=== PATIENT | female | born 1970 | race Hispanic/Latino ===

== ENCOUNTER 2018-11-01 11:59 | Day surgery (SDC) | payer BC ==
[2018-11-01] MEDS ORDERED: Ringers Lactate 1,000 ML IV ONE (12:18)
[2018-11-01] MEDS: CEFAZOLIN/SWI 2gm 2 GM/20 ML SYR ONE ×2 (13:25→13:42)
[2018-11-01] MEDS ORDERED: FENTANYL CITR 100 MCG/2 ML ONE (14:18)
[2018-11-01] MEDS ORDERED: PROPOFOL 200 MG/20 ML VIAL IV ONE (14:18)
[2018-11-01] MEDS ORDERED: LIDOCAINE 2% MPF 5 ML VIAL ONE (14:18)
[2018-11-01] MEDS ORDERED: MIDAZOLAM HCL 2 MG/2 ML INJ ONE (14:18)
[2018-11-01] MEDS ORDERED: dexAMETHasone 10 MG/ML VIAL ONE (14:19)
[2018-11-01] MEDS ORDERED: KETOROLAC 30 MG/ML INJ ONE (14:19)
[2018-11-01] MEDS ORDERED: ONDANSETRON 4 MG/2 ML VIAL ONE ×2 (14:27→15:34)
[2018-11-01] MEDS ORDERED: SILVER NITRATE 1 APPL TOP ONE (14:34)
[2018-11-01] MEDS: HYDROMORPHONE HCL 1 MG/ML INJ ONE ×2 (15:09→15:13)
[2018-11-01] MEDS ORDERED: HYDROMORPHONE HCL 1 MG/ML INJ ONE (15:16)
[2018-11-01 16:13] LABS: Potassium 4.5 mmol/L (3.5-5.1)
[2018-11-01] MEDS ORDERED: HYDROCODONE/APAP 5/325 MG TAB ONE (16:17)
--- NOTE | 2018-11-02 02:22 | OP ---
Date of Procedure: 11/01/2018 Surgeon: Anisa Duncan MD Tours Hostess: None. Preoperative Diagnoses: Heavy menstrual bleeding, dysmenorrhea, leiomyomata. Postoperative Diagnoses: Heavy menstrual bleeding, dysmenorrhea, leiomyomata, intracavitary submucos al leiomyoma. Procedures Performed: Hysteroscopy, myomectomy with Symphion, dilation and curettage, endometrial ab lation with HTA that was failed and NovaSure endometrial ablation was done. Anesthesia: General. Specimens: Uterine fibroids with some curettings of the endometrium, leiomyoma. Findings: Intracavitary leiomyoma in the distal right lateral posterior wall. The myoma was removed mostly with the help of the Symphion. Then, once it was flushed with the cavity, endometrial ablati on was performed. The cavity length was 7 cm as measured under direct hysteroscopy. The max cavity length was 6.5 cm and this was what it was set at. With this 4.4 cm, power of 157 foss and T was 65 seconds. There was excellent ablation effect excepting in the area immediately medial to the fibroi d, most likely because the slight indentation of the surface of the area that was resected was still raised and this could have prevented from the NovaSure device from touching the posterior aspect and that prevented the netting from touching the posterior lining of the endometrium immediately lateral to the resected myoma. However, global endometrial canal well ablated and it was thoroughly irrigate d and suctioned out. Complications: No complications. Drains: No drains. Condition: Stable. Indications: The patient is a 48-year-old with heavy bleeding investigated with ultrasound, found to have fibroids. Scope showed leiomyoma in the intracavitary area, so she was consented for a myomect ansley and ablation. No evidence of any dysplastic cells on sampling atypia or malignancy. Description Of Procedure: Ancef 2 g were given to the patient. Patient was brought back to the OR, placed in a supine fashion on the operating table, general anesthesia given with LMA. Patient was pl aced in a dorsal lithotomy position. Pelvic exam performed and last about 8 to 10 weeks. Prep x3 wi th Betadine was done on the vulva, vagina, and perineum. Draping was done. Speculum was placed to e xpose the cervix. Anterior lip grasped with 2 Allis clamps and diagnostic SlimLine hysteroscope was placed. Myoma was seen and there was some large clots as well. So, changed to a Symphion device and after the resectoscope was opened, the clots were resected out. Then, went on to visualize the myom a and using normal saline for distention medium MAP set at 80 mmHg. When her actual MAP was at 72, w ent on to perform a myomectomy and once the myoma was flushed with the sidewall and attempted to perf orm an HTA. The piece of the myoma was removed using Albert's forceps. Once HTA was primed up, the sheath was introduced without any further dilation of the cervix and once it was in the mid cavity, cavity integrity test was passed and started to do the ablation cycle as i t was heating up. There were 3 shut downs from a perceived leak. There was on inspection no leak th rough the cervical canal and no evidence of any perforation in the uterus. At this time, I decided t hat probably there was fluid absorption from the area of the myomectomy, so the HTA probably would no t work due to technical problem. Despite there being no complications, I just removed the HTA device and moved on to the NovaSure ablation. Cavity evaluation under direct hysteroscopy was performed. Cavity length at the fundus was 7 cm, cervical length under direct hysteroscopy was 4 cm. Then cavit y with a max of 6.5 on the NovaSure and this was set. Once this was done, went ahead to insert into the cavity after priming it. Then cervical occlusion was done and cavity integrity test was done. F irst time, it did not pass, then changed over to occluding the cervical external os with the help of a long Allis clamp since this was dilated due to the HTA once this was done and the cavity integrity test was done this time with the cervical plug. It passed and the ablation cycle was started at 157 foss for power and 65 seconds for an ablation cycle without any problems or interruptions. Cavity w idth was set at 4.4 cm. No other problems were detected. Direct hysteroscopy with a SlimLine was pe rformed and the sybil was removed and thoroughly irrigated the cavity. There was an excellent burn ex cepting in the lateral aspect to the myomectomy. All the instruments were removed. Instrument and s ponge counts were done and were correct at the end of the case. The patient tolerated the procedure well. She was recovered from anesthesia in the OR and taken to PACU in stable condition. She will f ollow up with me in 1 month. CARLOS Voice ID: [id number] Report ID: [id number]
== END 2018-11-01 17:15 | disposition home or self-care (01) ==
LOC: OR 11:59
PROVIDERS: ATTEND Obstetrics & Gynecology
PROC: 0UDB7ZX Extraction of Endometrium, Via Natural or Artificial Opening, Diagnostic (ICD-10-PCS; 2018-11-01)
PROC: 0UB98ZZ Excision of Uterus, Via Natural or Artificial Opening Endoscopic (ICD-10-PCS; principal; 2018-11-01 13:30)
PROC: 0U5B8ZZ Destruction of Endometrium, Via Natural or Artificial Opening Endoscopic (ICD-10-PCS; 2018-11-01 13:30)
DX: N92.1 Excessive and frequent menstruation with irregular cycle (principal); D25.0 Submucous leiomyoma of uterus; N94.6 Dysmenorrhea, unspecified; N39.3 Stress incontinence (female) (male); I10 Essential (primary) hypertension; J45.998 Other asthma; E78.00 Pure hypercholesterolemia, unspecified; K21.9 Gastro-esophageal reflux disease without esophagitis; R12 Heartburn; F41.9 Anxiety disorder, unspecified; Z88.8 Allergy status to other drugs, medicaments and biological substances; Z80.41 Family history of malignant neoplasm of ovary; Z83.3 Family history of diabetes mellitus
CPT/HCPCS: 80048; 36415; 81025; 88305; 58561; 58563; J2704; J2250; J3010; J1100; J1170 ×2; J0690; J2405 ×2

== ENCOUNTER 2021-04-30 14:34 | Emergency (ER) | payer BC ==
--- OUTSIDE RECORDS SUMMARY | 2021-04-30 14:36 | XMS REPORT | Continuity of Care Document ---
:1970 Author Organization [facility] t Address [address] Ferreira [address] [place] [id number] Care Team Providers Name Role Phone [phone] Primary Care Physician Unavailable David MEJÍA Attending Clinician Unavailable Payers Payer Name Policy Type Policy Number Effective Date Expiration Date S verón[place] P[place] POS [id number] 2016 00:00:00 [employer]BS [facility] [id number] 2016 EMPLOYEE PLAN 00:00:00 Problems This patient has no known problems. Allergies, Adverse Reactions, Alerts Allergy Allergy Status Severity Reaction(s) Onset Inactive Treating Comm ents Source Name Type Date Date Clinician LACTASE DRUG Active N/V 2020-0 [facility] 2-02 ity of 00:00: [address] GLUTEN DRUG Active N/V 2020-0 [facility] 2-02 ity of 00:00: [address] PEACH DRUG Active Anaphylaxis 2020-0 Unive rs INGREDI 2-02 ity of 00:00: [address] Medications This patient has no known medications. Procedures This patient has no known procedures. Encounters Start End Encounter Admission Attending Care Care Encounter Source Date/Time Date/Time Type Type Clinicians Facility Department ID 2019-11-22 2019-11-22 Outpatient EL MDA MDA [id number] 13:07:32 13:07:32 Melchor alexander 2019-11-22 2019-11-22 Outpatient EL MDA MDA [id number] 13:02:01 13:02:57 Melchor alexander 2019-06-13 2019-06-13 Emergency X KIRBY MEJÍA ERT [id number] [facility] 11:21:33 11:21:33 ELLI ity [facility] Results This patient has no known results.
[2021-04-30 15:12] LABS: Urine Blood 2+ (Negative); Urine Glucose Negative (Negative); Urine Protein Negative (Negative); Urine Specific Gravity 1.025 (1.005-1.030); Urine pH 6.5 (5.0-7.0)
[2021-04-30] MEDS ORDERED: MORPHINE 4 MG/ML SYR ONE (15:18)
[2021-04-30] MEDS ORDERED: ONDANSETRON 4 MG/2 ML VIAL ONE (15:18)
[2021-04-30 15:19] LABS: Absolute Lymphocytes (CBC) 1.1 K/uL (0.7-4.9); Hematocrit 45.9 % (36.0-45.0); RBC Red Blood Cell Count 5.05 M/uL (3.86-4.86)
[2021-04-30 15:23] LABS: Urine Specific Gravity/Preg 1.025 (1.005-1.030)
[2021-04-30 15:30] LABS: Albumin 4.1 g/dL (3.4-5.0); Bilirubin Direct 0.1 mg/dL (0-0.2); Bilirubin Total 0.6 mg/dL (0.2-1.0); Potassium 3.9 mmol/L (3.5-5.1)
--- NOTE | 2021-04-30 16:08 | RAD REPORT ---
EXAM DESCRIPTION: CTAbdomen Pelvis W Contrast - 04/30/2021 3:51 pm CLINICAL HISTORY: ABD PAIN COMPARISON: No comparisons TECHNIQUE: CT of the abdomen and pelvis was performed. All CT scans are performed using dose optimization technique as appropriate and may include automated exposure control or mA/KV adjustment according to patient size. FINDINGS: Lower chest: Small hiatal hernia with circumferential thickened distal esophagus which cou ld reflect gastroesophageal reflux disease. Liver: No acute abnormality or suspicious lesions. Biliary: Cholecystectomy. Stomach: No significant focal abnormality. Duodenum: No significant focal abnormality. Pancreas: No significant abnormality. Spleen: No significant abnormality. Adrenal: No suspicious lesions. Kidney/ureter: No hydronephrosis. No renal calculi. Retroperitoneum: No retroperitoneal adenopathy. Vascular: No aneurysm. Bowel: No significant focal abnormality. Normal appendix. Peritoneum: No ascites or free air. Bladder: Grossly unremarkable. Reproductive: Enhancing fluid within the endometrial canal measuring 2.4 cm . Bones: No acute fracture. Other: n/a IMPRESSION: No acute intra-abdominal or pelvic finding. Endometrial fluid could be secondary to cerv ical stenosis or prior endometrial ablation. Normal appendix.
--- NOTE | 2021-04-30 16:19 | EDPHYS ---
Physician Documentation [facility] Name: Isamar Rodriguez Age: 51 yrs Sex: Female : 1970 Arrival Date: 04/30/2021 Time: 14:37 Bed 25 Private MD: ED Physician Harinder Vázquez HPI: 04/30 15:58 This 51 yrs old Female presents to ER via Ambulatory with complaints of ma2 Ovarian Pain. 15:58 Onset: The symptoms/episode began/occurred gradually, 2 day(s) ago. Associated signs ma2 and symptoms: Pertinent negatives: diarrhea, fever, nausea, urinary frequency, vaginal bleeding. Severity of symptoms: At their worst the symptoms were moderate, in the emergency department the symptoms are unchanged. The patient has experienced similar episodes in the past. 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 - Social history:: Smoking status: Patient denies any tobacco usage or history of. - Family history:: not pertinent. ROS: 15:58 Negative for urinary frequency, flank pain, bladder incontinence, foul smelling ma2 urine. 15:58 Constitutional: Negative for fever, chills, and weight loss. 15:58 All other systems are negative. Exam: 15:58 Constitutional: This is a well developed, well nourished patient who is awake, alert, ma2 and in no acute distress. Neck: Trachea midline, no thyromegaly or masses palpated, and no cervical lymphadenopathy. Supple, full range of motion without nuchal rigidity, or vertebral point tenderness. No Meningismus. Chest/axilla: Normal chest wall appearance and motion. Nontender with no deformity. No lesions are appreciated. Cardiovascular: Regular rate and rhythm with a normal S1 and S2. No gallops, murmurs, or rubs. Normal PMI, no JVD. No pulse deficits. Respiratory: Lungs have equal breath sounds bilaterally, clear to auscultation and percussion. No rales, rhonchi or wheezes noted. No increased work of breathing, no retractions or nasal flaring. Abdomen/GI: Soft, non-tender, with normal bowel sounds. No distension or tympany. No guarding or rebound. No evidence of tenderness throughout. Back: No spinal tenderness. No costovertebral tenderness. Full range of motion. Skin: Warm, dry with normal turgor. Normal color with no rashes, no lesions, and no evidence of cellulitis. MS/ Extremity: Pulses equal, no cyanosis. Neurovascular intact. Full, normal range of motion. Vital Signs: 14:47 BP 185 / 115; Pulse 82; Resp 18; Temp 98.8(TE); Pulse Ox 100% ; Weight 75.75 kg; Height jl7 5 ft. 1 in. (154.94 cm); Pain 10/10; 15:18 BP 169 / 106; Pulse 80; Resp 18; Pulse Ox 99% on R/A; lr4 15:48 Pain 0/10; lr4 16:10 BP 159 / 97; Pulse 75; Resp 18; Pulse Ox 97% ; Pain 0/10; lr4 14:47 Body Mass Index 31.55 (75.75 kg, 154.94 cm) jl7 MDM: 14:51 Patient medically screened. ma2 15:58 Differential diagnosis: menorrhea, uterine fibroids, urinary tract infection. Data ma2 reviewed: vital signs, nurses notes. Counseling: I had a detailed discussion with the patient and/or guardian regarding: the historical points, exam findings, and any diagnostic results supporting the discharge/admit diagnosis, the presence of at least one elevated blood pressure reading (>120/80) during this emergency department visit, the need for outpatient follow up. Response to treatment: the patient's symptoms have markedly improved after treatment. 04/30 14:53 Order name: Basic Metabolic Panel; Complete Time: 15:32 oh2 04/30 14:53 Order name: CBC with Diff; Complete Time: 15:32 oh2 04/30 14:53 Order name: Hepatic Function; Complete Time: 15:32 ma2 04/30 14:53 Order name: Lipase; Complete Time: 15: oh2 04/30 15:12 Order name: Urine Dipstick-Ancillary; Complete Time: 15:32 EDMS 04/30 15:17 Order name: Urine --Ancillary (enter results); Complete Time: 15:32 eb 04/30 14:53 Order name: IV Saline Lock; Complete Time: 15:06 [facility] 04/30 14:53 Order name: Labs collected and sent; Complete Time: 15:06 [facility] 04/30 14:53 Order name: CT Abd/Pelvis - IV Contrast Only; Complete Time: 16:18 oh2 04/30 14:53 Order name: Urine Dipstick-Ancillary (obtain specimen); Complete Time: 15:12 ma2 Administered Medications: 15:15 Drug: Zofran (Ondansetron) 4 mg Route: IVP; Site: left antecubital; lr4 16:28 Follow up: Response: Pain is decreased lr4 16:29 Follow up: Response: Nausea is decreased lr4 15:15 Drug: morphine 4 mg Route: IVP; Site: left antecubital; lr4 16:29 Follow up: Response: No adverse reaction; Pain is decreased; RASS: Alert and Calm (0) lr4 Disposition Summary: 04/30/21 16:19 Discharge Ordered Location: Home ma2 Condition: Stable ma2 Diagnosis - Lower abdominal pain, unspecified ma2 Followup: ma2 - With: Private Physician - When: Tomorrow - Reason: Wound Recheck Discharge Instructions: - Discharge Summary Sheet ma2 - Abdominal Pain, Adult ma2 Forms: - Medication Reconciliation Form ma2 - Thank You Letter ma2 - Antibiotic Education ma2 - Prescription Opioid Use ma2 Prescriptions: - ketorolac 10 mg Oral tablet - take 1 tablet by ORAL route every 6 hours not to exceed 40 mg in 24hrs; 20 ma2 tablet; Refills: 0, Product Selection Permitted - Zofran 4 mg Oral Tablet - take 1 tablet by ORAL route every 12 hours As needed; 20 tablet; Refills: 0, ma2 Product Selection Permitted - Diclofenac Sodium 75 mg Oral Tablet Sustained Release - take 1 tablet by ORAL route 2 times per day; 30 tablet; Refills: 0, Product ma2 Selection Permitted Signatures: Dispatcher [employer] Sea Stevenson RN RN jl7 Harinder Vázquez MD MD ma2 Kriss Foster RN RN lr4 Corrections: (The following items were deleted from the chart) 15:07 14:54 Abdomen Pelvis W Con+CT.RAD.BRZ ordered. EDMS EDMS
--- NOTE | 2021-04-30 16:19 | ER ---
Nurse's Notes [facility] Name: Isamar Rodriguez Age: 51 yrs Sex: Female : 1970 Arrival Date: 04/30/2021 Time: 14:37 Bed 25 Private MD: Diagnosis: Lower abdominal pain, unspecified Presentation: 04/30 14:47 Chief complaint: Patient states: "Im having pain in my right ovary and shoots to my jl7 pelvis and down my leg. I can handle pain usually but with 3 Midol and 2 Advil nothing is helping." Pt c/o nausea. Coronavirus screen: Vaccine status: Patient reports receiving the 2nd dose of the covid vaccine. Client denies travel out of the [place] in the last 14 days. At this time, the client does not indicate any symptoms associated with coronavirus-19. Ebola Screen: Patient negative for fever greater than or equal to 101.5 degrees Fahrenheit, and additional compatible Ebola Virus Disease symptoms Patient denies exposure to infectious person. Patient denies travel to an Ebola-affected area in the 21 days before illness onset. No symptoms or risks identified at this time. Initial Sepsis Screen: Does the patient meet any 2 criteria? No. Patient's initial sepsis screen is negative. Does the patient have a suspected source of infection? No. Patient's initial sepsis screen is negative. Risk Assessment: Do you want to hurt yourself or someone else? Patient reports no desire to harm self or others. Onset of symptoms is unknown. 14:47 Method Of Arrival: Ambulatory [facility] 14:47 Acuity: REBECCA 3 jl7 Triage Assessment: 14:50 General: Appears in no apparent distress. uncomfortable, Behavior is calm, cooperative, ab2 appropriate for age. Pain: Complains of pain in suprapubic area and right lower quadrant Pain radiates to pelvis and right leg. 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 - Social history:: Smoking status: Patient denies any tobacco usage or history of. - Family history:: not pertinent. Screenin:50 Abuse screen: Denies threats or abuse. Denies injuries from another. Nutritional ab2 screening: No deficits noted. Tuberculosis screening: No symptoms or risk factors identified. Fall Risk None identified. Assessment: 15:06 General: Appears in no apparent distress. comfortable, Behavior is calm, cooperative. lr4 Neuro: No deficits noted. Cardiovascular: No deficits noted. Respiratory: No deficits noted. GI: Reports lower abdominal pain, cramping, since yesterday. : Reports cramping, in right flank(s) radiates into pelvis vaginal bleeding that is. 16:11 Reassessment: Patient is alert, oriented x 3, equal unlabored respirations, skin lr4 warm/dry/pink. Patient states feeling better. Patient states symptoms have improved. 16:19 General: Denies Pt departed ed ambulatory with all personal effects, . lr4 Vital Signs: 14:47 BP 185 / 115; Pulse 82; Resp 18; Temp 98.8(TE); Pulse Ox 100% ; Weight 75.75 kg; Height jl7 5 ft. 1 in. (154.94 cm); Pain 10/10; 15:18 BP 169 / 106; Pulse 80; Resp 18; Pulse Ox 99% on R/A; lr4 15:48 Pain 0/10; lr4 16:10 BP 159 / 97; Pulse 75; Resp 18; Pulse Ox 97% ; Pain 0/10; lr4 14:47 Body Mass Index 31.55 (75.75 kg, 154.94 cm) jl7 ED Course: 14:37 Patient arrived in ED. ds1 14:49 Triage completed. jl7 14:51 Harinder Vázquez MD is Attending Physician. ma2 14:51 Arm band placed on left wrist. ab2 14:57 Kriss Foster RN is Primary Nurse. lr4 15:00 Inserted saline lock: 20 gauge in left antecubital area, using aseptic technique. lr4 15:06 Basic Metabolic Panel Sent. lr4 15:06 CBC with Diff Sent. lr4 15:06 Hepatic Function Sent. lr4 15:06 Lipase Sent. lr4 15:12 Urine Dipstick-Ancillary Sent. lr4 15:18 Patient has correct armband on for positive identification. Bed in low position. Call lr4 light in reach. Side rails up X 1. Adult w/ patient. 15:19 No provider procedures requiring assistance completed. lr4 15:51 CT Abd/Pelvis - IV Contrast Only In Process Unspecified. EDMS 16:19 IV discontinued. lr4 Administered Medications: 15:15 Drug: Zofran (Ondansetron) 4 mg Route: IVP; Site: left antecubital; lr4 16:28 Follow up: Response: Pain is decreased lr4 16:29 Follow up: Response: Nausea is decreased lr4 15:15 Drug: morphine 4 mg Route: IVP; Site: left antecubital; lr4 16:29 Follow up: Response: No adverse reaction; Pain is decreased; RASS: Alert and Calm (0) lr4 Outcome: 15:48 Condition: stable lr4 16:19 Discharge ordered by . ma2 16:19 Discharged to home ambulatory, with family. lr4 16:19 Discharge instructions given to patient. lr4 16:28 Patient left the ED. lr4 Signatures: Dispatcher [employer] EDVA Genny Dunn ds1 Sea Mayorga RN RN jl7 Harinder Vázquez MD MD ma2 Bleininger, Alexis ab2 Rogers, Lashaunda RN RN lr4
[2021-04-30 17:28] VITALS: TEMP 98.8
[2021-04-30 17:33] VITALS: BP 159/97; O2SAT 97
== END 2021-04-30 16:28 | disposition home or self-care (01) ==
LOC: ER 14:34
DX: R10.30 Lower abdominal pain, unspecified (principal); I10 Essential (primary) hypertension
CPT/HCPCS: 85025; 80048; 36415; 81025; 80076; 81003; 83690; 74177; 96375; 96374; 99284; J2405